=== PATIENT | male | born 1985 | race African-American/Black ===

== ENCOUNTER 2016-05-05 08:27 | Emergency (ER) | payer OTHER ==
[2016-05-05] MEDS ORDERED: traMADol HCl 50 MG TAB ONE (09:13)
[2016-05-05] MEDS ORDERED: Ibuprofen 800 MG TAB ONE (09:14)
--- NOTE | 2016-05-05 18:43 | RAD ---
RIGHT FOOT THREE VIEWS: 05/05/16 No fracture, dislocation, or periosteal reaction was well. All bones appear normal. IMPRESSION: No acute finding. POS: HOME
== END 2016-05-05 09:24 | disposition home or self-care (01) ==
LOC: BURERS 08:27
DX: S93.601A Unspecified sprain of right foot, initial encounter (principal); F17.210 Nicotine dependence, cigarettes, uncomplicated; X58.XXXA Exposure to other specified factors, initial encounter